=== PATIENT | male | born 1985 | race Caucasian/White ===

== ENCOUNTER 2016-09-02 21:09 | Emergency (ER) | payer OTHER ==
--- NOTE | ~2016-09-02 | EKG ---
PATIENT: ROSA LEE UNIT #: [id number] Ventricular Rate: 101 BPM Atrial Rate: 101 BPM P-R Interval: 160 ms QRS Duration: 86 ms Q-T Interval: 322 ms QTC Calculation(Bezet): 417 ms P [place]: 40 degrees Calculated R [place]: -11 degrees Calculated T [place]: 25 degrees Diagnosis Line: Sinus tachycardia Diagnosis Line: Possible Inferior infarct , age undetermined Diagnosis Line: Abnormal ECG Diagnosis Line: No previous ECGs available Diagnosis Line: Confirmed by PORSHA HARMAN MD ([id number]) on Diagnosis Line: 09/06/2016 3:57:36 PM INTERPRETING MD: KIMANI SANCHEZ
--- NOTE | ~2016-09-02 | CR72 ---
[facility] A Service of [facility] & [facility] RADIOLOGY TEXT RESULTS PATIENT: ROSA LEE LOCATION: [facility] : 81 UNIT #: [id number] AGE: [address]: Maxime Wei MD SEX: M ORDER DR: [id number] [facility] [address] [place], [place] [address] [id number] E MR#: [id number] Acc #: [id number] NAME: ROSA LEE. : 1985 SEX: M STUDY DATE/TIME: 09/02/2016 20:55 UNIT: [facility] ROOM: STUDY DESCRIPTION: CR Chest Single View Portable Attending Physician: Maxime Wei M.D. Ordering Physician: Maxime Wei M.D. Primary Care Physician: Gómez Decker M.D. MEDICAL IMAGING REPORT This report is preliminary unless electronic signature is present EXAM Portable chest x-ray, 09/02/2016 HISTORY Chest pain for 5 days. Chest pain, trouble breathing. FINDINGS AP radiograph of the chest is presented. No prior chest radiographs for comparison. The bony structures are unremarkable. Heart [id number] limits of normal in size. Lungs moderately well inflated. There is no evidence of acute infectious or inflammatory disease, pleural effusion or pneumothorax. No suspicious nodule. Dictated by... Guevara Rhodes M.D. THIS IS AN ELECTRONICALLY VERIFIED REPORT Guevara Rhodes M.D. at 09/03/2016 8:22 PM David TD: 09/03/2016 15:19 JOB #: [id number] MEDICAL IMAGING REPORT COPY
[2016-09-02 20:59] LABS: BASOPHIL# 0.1 X10e3 (0-0.3); BASOPHIL% 0.8 % (0-2.5); EOSINOPHIL# 0.2 X10e3 (0-0.7); EOSINOPHIL% 1.3 % (0.0-7.0); HEMATOCRIT 49.1 % (38.0-50.0); HEMOGLOBIN 16.9 gm/dL (13.0-16.0); LYMPHOCYTE# 3.3 X10e3 (1.0-3.5); LYMPHOCYTE% 23.3 % (17.0-45.0); MEAN CELL VOLUME 83.9 FL (83-96); MEAN CORPUSCULAR HEMOGLOBIN 28.9 PG (28-34); MEAN CORPUSCULAR HGB CONC 34.5 g/dL (30-36); MEAN PLATELET VOLUME 9.2 FL (6.5-11.5); MONOCYTE# 1.2 X10e3 (0-1.0); MONOCYTE% 8.6 % (3.0-12.0); NEUTROPHIL# 9.5 X10e3 (1.5-7.1); PLATELET COUNT 215 X10e3 (140-420); RED BLOOD COUNT 5.86 X10e (3.90-5.60); RED CELL DISTRIBUTION WIDTH 12.9 % (11.0-15.5); WHITE BLOOD COUNT 14.3 X10e3 (4.0-10.5)
[2016-09-02 21:00] LABS: DIFF IND NO
[~2016-09-02 21:09] MED LIST: DICLOFENAC; LACRI-LUBE S.O3.5 GM OS; LISINOPRIL20 MG PO; LORCET PLUS TAB1 TA1; LORTAB 10-5001 EACH PO; MUSCLE RELAXER; PREDNISONE10 MG; ROBAXIN500 MG
[2016-09-02 21:13] LABS: POC - CKMB 1.2 ng/mL (0.0-7.9); POC - TROPONIN <0.05 ng/mL (<=0.05)
[2016-09-02 21:26] LABS: ALKALINE PHOSPHATASE 72 U/L (32-92); ALT (SGPT) 79 U/L (10-40); AST (SGOT) 37 U/L (10-42); BILIRUBIN, DIRECT 0.1 mg/dL (0.0-0.2); BILIRUBIN,INDIRECT 0.6 mg/dL (0.0-0.9); BILIRUBIN,TOTAL 0.7 mg/dL (0.2-2.0); BLOOD UREA NITROGEN 14 mg/dL (9-23); BUN/CREATININE RATIO 15.55; CALCIUM SERUM 9.6 mg/dL (8.4-10.2); CARBON DIOXIDE 29 mmol/L (22-31); CHLORIDE 98 mmol/L (100-111); CREATININE SERUM 0.9 mg/dL (0.6-1.4); GLOM FILT RATE Estimated ABOVE60 mL/min (>60); GLUCOSE FASTING 107 mg/dL (70-110); POTASSIUM 3.5 mmol/L (3.5-5.1); SODIUM 137 mmol/L (135-145)
[2016-09-02 22:16] LABS: AMPHETAMINE NEG (NEG); BARBITURATES NEG (NEG); BENZODIAZEPINES NEG (NEG); COCAINE NEG (NEG); MARIJUANA NEG (NEG); OPIATES NEG (NEG); TRICYCLIC ANTIDEPRESSANTS NEG (NEG); U METHADONE NEG (NEG)
[2016-09-02 22:55] LABS: POC - TROPONIN <0.05 ng/mL (<=0.05)
== END 2016-09-03 01:30 | disposition home or self-care (01) ==
LOC: CED 21:09
PROVIDERS: Emergency Medicine
DX: R07.89 Other chest pain (principal); F41.9 Anxiety disorder, unspecified
CPT/HCPCS: 36415; 71010; 80048; 80076; 80307; 82553; 84484; 85025; 85379; 93005; 96360; 99284